=== PATIENT | female | born 1945 | race Two or more races ===

== ENCOUNTER 2019-08-03 11:54 | Emergency (ER) | payer OTHER ==
[~2019-08-03] VITALS: Ht 154.9 cm; Wt 57.6 kg
[~2019-08-03 11:54] MED LIST: NABUMETONE500 MG PO; PERCOCET 5/3251 TAB PO
[2019-08-03] MEDS ORDERED: ZESTRIL10 M1 PO (13:25)
[2019-08-03] MEDS ORDERED: METFORMIN HCL500 MG PO (13:26)
== END 2019-08-03 16:58 | disposition home or self-care (01) ==
LOC: ER 11:54
DX: G89.11 Acute pain due to trauma (principal); M25.512 Pain in left shoulder; M25.522 Pain in left elbow